=== PATIENT | male | born 1990 | race Caucasian/White ===

== ENCOUNTER → 2023-02-27 06:59 | Outpatient (CLI) | payer OTHER, SELFPAY ==
--- NOTE | ~2023-02-27 | MR_ITS ---
MRI of the right knee Clinical history: ACL rupture Technique: Coronal proton density and proton density-weighted images, sagittal proton-density and T2 fat-sat images, and axial proton-density fat-saturated images were acquired. Findings: There is evidence of prior ACL graft reconstruction. There is acute, complete rupture of th e ACL graft, which is markedly amorphous, hyperintense, and disorganized in appearance. Posterior cru ciate ligament is intact. There is mild thickening and increased signal of the MCL, with mild strandi ng soft tissue edema. Lateral collateral ligament complex is intact. Popliteus tendon is intact. No medial meniscal tear identified. Probable radial/vertical tear near the posterior root of the late ral meniscus. There are transchondral impaction injuries of the central aspect of the lateral femoral condyle and p osterolateral tibial plateau with associated extensive marrow edema. There is additional bone contusi on at the posterior medial tibial plateau. Articular cartilage in the patellofemoral compartment is w ell preserved. Extensor mechanism is intact. Mild increased signal of the patellar tendon could be related to prior surgery. Small joint effusion present. No Garcia's cyst. Impression: Prior ACL graft reconstruction, with complete, acute rupture of the ACL graft itself. Probable grade 1 to mild grade 2 MCL sprain. Transchondral impaction injuries of the central aspect of the lateral femoral condyle and posterolate ral tibial plateau. Additional bone contusion at the posterior medial tibial plateau. Probable radial/vertical tear near the posterior root of the lateral meniscus. Small joint effusion. Reviewed, dictated and finalized at [facility]. Impression: Prior ACL graft reconstruction, with complete, acute rupture of the ACL graft i tself. Probable grade 1 to mild grade 2 MCL sprain. Transchondral impaction injuries of the central aspect of the lateral femoral c ondyle and posterolateral tibial plateau. Additional bone contusion at the post erior medial tibial plateau. Probable radial/vertical tear near the posterior root of the lateral meniscus. Small joint effusion.
== END ==
PROVIDERS: PCP Physician Assistant; Visit Provider Physician Assistant
DX: S83.511A Sprain of anterior cruciate ligament of right knee, initial encounter (principal); X58.XXXA Exposure to other specified factors, initial encounter; M25.461 Effusion, right knee
CPT/HCPCS: 73721